=== PATIENT | female | born 1970 | race African-American/Black ===

== ENCOUNTER 2019-06-13 09:13 | Emergency (ER) | payer MEDICAID, OTHER ==
[~2019-06-13] VITALS: Ht 157.5 cm; Wt 104.0 kg
[2019-06-13] MEDS ORDERED: KETOROLAC 30MG/ML VIAL IV STA (11:08)
[2019-06-13] MEDS ORDERED: SODIUM CHLORIDE 0.9% 1,000 ML IV ONE (11:08)
[2019-06-13] MEDS ORDERED: METOCLOPRAMIDE HCL 10MG/2ML VIAL IV ONE (11:15)
[2019-06-13 12:45] VITALS: BP 138/76
== END 2019-06-13 14:21 | disposition home or self-care (01) ==
LOC: ER 09:56
DX: R51 Headache (principal); R11.0 Nausea; H53.8 Other visual disturbances; I10 Essential (primary) hypertension; E78.00 Pure hypercholesterolemia, unspecified; Z98.84 Bariatric surgery status
CPT/HCPCS: 96361; 96374; 96375; 99283; J1885; J2765; J7030